=== PATIENT | male | born 1965 | race Caucasian/White ===

== ENCOUNTER 2018-08-06 07:40 | Day surgery (SDC) | payer OTHER ==
[~2018-08-06] VITALS: Ht 172.7 cm; Wt 124.5 kg
[2018-08-06] VITALS (9 sets, daily range): BP systolic 113–135; BP diastolic 72–92; PULSE 50–82; TEMP 97.9
[~2018-08-06 07:40] MED LIST: AMBIEN 10MG10 MG; ATIVAN 0.50.5 MG/TAB PO; B/P MED; FLOMAX0.4 MG PO; HYZAAR 25 MG-101 TAB PO; LEXAPRO 10MG10 MG PO; PHENERGAN 25 TA25 MG PO; VIAGRA50 M1 PO; VICODIN 5/5001 UDTAB PO
[2018-08-06] MEDS ORDERED: NORVASC 5MG5 MG/TAB PO (07:58)
[2018-08-06] MEDS ORDERED: COREG 25MG25 MG/TAB PO (07:58)
[2018-08-06 08:23] LABS: BASO % 0.3 % (0.0-2.0); EOS # 0.1 (0.0-0.7); EOS % 1.7 % (0-4.0); GRAN % 71.9 % (42.2-75.2); HEMOGLOBIN 14.6 g/dl (13.5-18.0); INR 1.1 (0.8-3.0); LYMPH # 1.2 (1.2-3.4); LYMPH % 17.5 % (20.0-51.0); MEAN CELL VOLUME 81 fl (80.0-100.0); MEAN CORPUSCULAR HEMOGLOBIN 26 pg (27.0-31.0); MEAN CORPUSCULAR HGB CONC 32 g/dl (33.0-37.0); MEAN PLATELET VOLUME 10.2 fl (7.4-10.4); MONO # 0.6 (0.1-0.6); MONO % 8.3 % (1.7-9.3); PLATELET COUNT 229 K/mm3 (130-400); RED BLOOD COUNT 5.55 M/mm3 (4.20-5.60); REDCELL DISTRIBUTION WIDTH-CV 15.7 % (11.5-14.5)
[2018-08-06 08:25] LABS: ALANINE AMINOTRANSFERASE 33 U/L (21-72); ALBUMIN 4.2 gm/dL (3.5-5.0); ALKALINE PHOSPHATASE 46 U/L (50-136); ANION GAP 9 mmol/L (7-16); AST,SGOT 32 U/L (15-37); BILIRUBIN,TOTAL 0.6 mg/dL (0.0-1.0); BLOOD UREA NITROGEN 19 mg/dL (9-20); CALCIUM 9.2 mg/dL (8.4-10.2); CARBON DIOXIDE 30 mmol/L (22-30); CHLORIDE 99 mmol/L (98-107); CREATININE, serum 0.79 mg/dL (0.66-1.25); GLUCOSE 162 mg/dL (74-106); LIPASE 211 U/L (23-300); POTASSIUM 3.7 mmol/L (3.4-5.0); SODIUM 138 mmol/L (137-145); TOTAL PROTEIN 7.3 gm/dL (6.4-8.2)
[2018-08-06 08:45] LABS: TROPONIN-I < 0.012 ng/mL (0.000-0.034)
== END 2018-08-06 18:14 | disposition home or self-care (01) ==
LOC: COL.ER 07:40 → ICU 12:30 → COL.ER 12:30 → SDCO 12:30 → ICU 12:30 → IMCU 15:48 → SDCO 18:14
PROVIDERS: Emergency Medicine
DX: I20.0 Unstable angina (principal); I10 Essential (primary) hypertension; E78.5 Hyperlipidemia, unspecified; E11.9 Type 2 diabetes mellitus without complications; G47.33 Obstructive sleep apnea (adult) (pediatric); E66.9 Obesity, unspecified; Z96.652 Presence of left artificial knee joint; Z82.49 Family history of ischemic heart disease and other diseases of the circulatory system
CPT/HCPCS: C1887; J1644; J2250; J2405; J3010; J7030; Q9967

== ENCOUNTER 2021-09-21 18:10 | Emergency (ER) | payer OTHER ==
[~2021-09-21] VITALS: Ht 172.7 cm; Wt 127.3 kg
[~2021-09-21 18:10] MED LIST changes: +COREG 25MG25 MG/TAB PO; +NORVASC 5MG5 MG/TAB PO
[2021-09-21 19:30] VITALS: BP 134/64; PULSE 62; TEMP 98.4
== END 2021-09-21 19:40 | disposition home or self-care (01) ==
LOC: COL.ER 18:10
DX: R13.10 Dysphagia, unspecified (principal); I10 Essential (primary) hypertension; G47.00 Insomnia, unspecified; Z79.899 Other long term (current) drug therapy